=== PATIENT | female | born 1980 | race Caucasian/White ===

== ENCOUNTER 2018-01-08 19:09 | Emergency (ER) | payer OTHER ==
[~2018-01-08] VITALS: Ht 172.7 cm; Wt 73.3 kg
[2018-01-08] MEDS ORDERED: ULTRACET1 TABLET PO (20:36)
[2018-01-08] MEDS ORDERED: NAPROSYN500 MG PO (20:36)
[2018-01-08] MEDS ORDERED: VALIUM5 MG PO (20:36)
[2018-01-08 20:54] VITALS: BP 121/88
== END 2018-01-08 20:55 | disposition home or self-care (01) ==
LOC: EME 19:09
DX: S16.1XXA Strain of muscle, fascia and tendon at neck level, initial encounter (principal); S06.0X0A Concussion without loss of consciousness, initial encounter; V49.50XA Passenger injured in collision with unspecified motor vehicles in traffic accident, initial encounter; Y92.410 Unspecified street and highway as the place of occurrence of the external cause; Z88.0 Allergy status to penicillin
CPT/HCPCS: 72040; 99281; 99283